=== PATIENT | male | born 1960 | race Caucasian/White ===

== ENCOUNTER 2016-09-05 14:31 | Emergency (ER) | payer OTHER ==
[~2016-09-05] VITALS: Ht 157.5 cm; Wt 67.9 kg
[~2016-09-05 14:31] MED LIST: ACET325T33 PO; ACET500C5 PO; ALBU18HF IH; ALBU18HF INHALATION; ALBU2.5V3 NEB; ALBU8.5H3 INH; ASPI-664 PO; DIAZ-90 PO; GUAI-158 PO; LISI20TA11 PO; LORA10CA PO; NAPR-260 PO; PANT40TA4 PO; PRED20TA PO; RTPRO NEB; SIMV20TA PO; SODI30SP2 NS; UDROBDM PO
[2016-09-05 14:40] VITALS: Ht 157.5 cm; Wt 67.9 kg
[2016-09-05] MEDS ORDERED: ONDANSETRON (ODT) 4 MG TAB ODT STA (15:35)
[2016-09-05] MEDS ORDERED: MECLIZINE 12.5 MG TAB PO STA (15:35)
--- NOTE | 2016-09-05 15:45 | ERD ---
ER Documentation Chief Complaint Date/Time DATE: 09/05/16 TIME: 15:43 Chief Complaint vertigo x 1 week HPI This is a 55-year-old male with a history of gastritis, high cholesterol, asthma presenting to the emergency department complaining of dizziness when he turns his head for the past week. Patient does admit to having nausea, and balance when he walks. He denies significant headache, tinnitus, recent upper respiratory infection, ear infections, and other neuro deficits. Patient states that this has never happened before. He denies taking any medications ROS All systems reviewed and are negative except as per history of present illness. Medications Home Meds Active Scripts Guaifenesin/Dextromethorphan* (Guaifenesin* DM) 1 Each Tablet, 1 TAB PO Q12, # 20 TAB.SA Prov:AISLINN CABEZAS PA-C 03/28/16 Loratadine* (Claritin*) 10 Mg Capsule, 10 MG PO DAILY, #30 CAP Prov:AISLINN CABEZAS PA-C 03/28/16 Sodium Chloride (Saline Nasal [place]) 30 Ml [place], 1 SPR NS BID, #1 SPRAY Prov:AISLINN CABEZAS PA-C 03/28/16 Diazepam* (Valium*) 5 Mg Tablet, 5 MG PO Q8, #5 TAB Prov:TIFFANIE COTA NP 02/04/16 Guaifenesin-Dextromethorphan* (Robitussin* DM) 100MG/10MG/5ML Syrup, 5 ML PO Q6H Y for COUGH for 6 Days, #120 ML 0 Refills Prov:ROBERT HUERTA PA-C 12/24/15 Acetaminophen* (Tylophen*) 500 Mg Capsule, 1 CAP PO Q6H Y for PAIN AND OR ELEVATED TEMP for 5 Days, #20 CAP 0 Refills Prov:ROBERT HUERTA PA-C 12/24/15 Albuterol Sulfate* (Ventolin HFA*) 18 Gm Hfa.aer.ad, 2 PUFF INHALATION Q6H for 30 Days, #1 INHALER 0 Refills Prov:ROBERT HUERTA PA-C 12/24/15 Albuterol Sulfate* (Proair HFA*) 8.5 Gm Hfa.aer.ad, 2 PUFF INH Q4, #1 INHALER Prov:SHERI SR PA-C 09/26/15 Albuterol Sulfate* (Proventil* Neb) 0.083% Neb, 2.5 MG NEB Q4 Y for SHORTNESS OF BREATH, #30 EA Prov:REMBERTOSHERI Osman PA-C 09/26/15 Prednisone* (Prednisone*) 20 Mg Tab, 40 MG PO DAILY for 4 Days, TAB Prov:SHERI SR PA-C 09/26/15 Acetaminophen* (Tylenol*) 325 Mg Tablet, 2 TAB PO Q8 Y for PAIN AND OR ELEVATED TEMP, #20 TAB Prov:MISSY WEBB DO 08/17/15 Naproxen* (Naprosyn*) 500 Mg Tablet, 500 MG PO BID Y for PAIN AND/OR INFLAMMATION, #20 TAB Prov:TRACEY,MISSY DO 08/17/15 Aspirin* (Aspirin* EC) 81 Mg Tablet.dr, 81 MG PO DAILY, #30 TAB Prov:CHIRAG EDWARDS 05/13/15 Pantoprazole* (Pantoprazole*) 40 Mg Tabec, 40 MG PO DAILY@06, #30 Prov:AYALA HARTMAN Y 01/16/15 Albuterol Sulfate* (Ventolin HFA*) 18 Gm Hfa.aer.ad, 2 PUFF IH Q4H Y for WHEEZING AND RESP DISTRESS for 10 Days, EA Prov:PEEWEE CONNELL MD 11/06/14 Reported Medications Simvastatin* (Zocor*) 20 Mg Tablet, 20 MG PO HS, TAB 03/23/15 Albuterol Sulfate* (Albuterol Sulfate* Neb) 0.083%-3 Ml Neb, 1.25 MG NEB Q3H Y for WHEEZING AND SOB, EA 01/12/15 Lisinopril* (Lisinopril*) 20 Mg Tablet, 20 MG PO DAILY, TAB HOLD IF SBP LESS THAN 110 01/12/15 Allergies Allergies: Coded Allergies: No Known Allergy (Unverified , 09/05/16) PMhx/Soc Medical and Surgical Hx: pt denies Medical Hx, pt denies Surgical Hx History of Surgery: No Anesthesia Reaction: No Hx Neurological Disorder: No Hx Respiratory Disorders: No Hx Cardiac Disorders: No (hypercholesterolemia) Hx Psychiatric Problems: No Hx Miscellaneous Medical Probl: No Hx Alcohol Use: No Hx Substance Use: No Hx Tobacco Use: No Smoking Status: Never smoker Physical Exam Vitals Vital Signs Date Time Temp Pulse Resp B/P Pulse Ox O2 Delivery O2 Flow Rate FiO2 09/05/16 14:40 98.1 75 18 111/75 99 Physical Exam GENERAL: well-developed/well-nourished, in no apparent distress, non-toxic appearing HENT: NC/AT, bilateral tympanic membrane is normal with good cone of light, nares patent, oropharynx clear without exudates EYES: Conjunctiva normal, PERRLA, EOMI, no nystagmus noted NECK: Supple, no lymphadenopathy PULM: CTA bilaterally, no rales, rhonchi, or wheezing heard CV: Normal S1S2, RRR, good capillary refill GI: Soft, non-distended, normal bowel sounds, non-tender BACK: No midline tenderness, no masses, No CVAT EXT: No clubbing, cyanosis, or edema NEURO: Alert and orientated to person, place, and time. CN II-IIX intact. Gait and coordination were normal. Hand homemaking rehabilitation consultant strength were equal and within normal limits SKIN: Intact, normal turgor PSYCH: Normal mood and mentation, patient denied SI Results 24 hrs Current Medications Medications (Trade) Dose Ordered Sig/Doe Route PRN Reason Start Time Stop Time Status Last Admin Dose Admin Ondansetron HCl (Zofran Odt) 8 mg ONCE STAT ODT 09/05/16 15:35 09/05/16 15:36 DC 09/05/16 15:41 Meclizine HCl (Antivert) 25 mg ONCE STAT PO 09/05/16 15:35 09/05/16 15:36 DC 09/05/16 15:41 Procedures/MDM MDM: 55-year-old male presents to the ER with vertigo. My clinical suspicion for benign paroxysmal positional vertigo is high due to physical examination. Symptoms were reproduced with movement of head. My other differentials include but not limited to include labyrinthitis, vestibular neuritis, Mnire's disease , acoustic neuroma, otitis media and central causes such as vestibular migraine , brainstem ischemia, and multiple sclerosis. Patient did not have neurological symptoms, headaches, tinnitus or hearing loss. I do not think a CT scan is necessary at this time, as I believe the risks outweigh the benefits since symptoms are most consistent with benign positional vertigo. However, I have given strict precautions to return to the ER if condition is not improving as expected or if condition worsens. In the ED, patient was given Antivert 25mg and Zofran 8mg ODT. DISPOSITION: hemodynamically stable for discharge home. I have discussed the pathology of the condition. Prescriptions Antivert and Zofran have been given. I have discussed to see a primary care physician for follow-up examination and management. Discussed to return to the ER if condition worsens or not improves as expected. Patient expressed that they agreed and understood this plan. Departure Diagnosis: Primary Impression: Vertigo Condition: Stable AISLINN CABEZAS PA-C September 05, 2016 15:45
[2016-09-05] MEDS ORDERED: ONDA8TAB14 PO (15:48)
[2016-09-05] MEDS ORDERED: MECL12.574 PO (15:48)
[2016-09-05 16:35] VITALS: BP 118/67; PULSE 78; RESP 18; TEMP 98.1
== END 2016-09-05 16:36 | disposition home or self-care (01) ==
LOC: FTE 14:31
DX: R42 Dizziness and giddiness (principal); Z79.82 Long term (current) use of aspirin
CPT/HCPCS: Z7502; Z7610; 99283

== ENCOUNTER 2016-11-17 12:21 | Emergency (ER) | payer OTHER ==
[~2016-11-17] VITALS: Ht 162.6 cm; Wt 59.0 kg
[~2016-11-17 12:21] MED LIST changes: +MECL12.574 PO; +ONDA8TAB14 PO
[2016-11-17 12:27] VITALS: Ht 162.6 cm; Wt 59.0 kg
[2016-11-17] MEDS ORDERED: ALBUTEROL 0.083% (NEB) 2.5 MG/3 ML AMP HHN STA (12:35)
[2016-11-17] MEDS ORDERED: predniSONE 20 MG TAB PO ONE (13:00)
[2016-11-17] MEDS ORDERED: IPRATROPIUM (NEB) 0.5 MG/2.5 ML AMP HHN ONE (13:00)
[2016-11-17] MEDS ORDERED: PRED20TA PO (13:10)
[2016-11-17] MEDS ORDERED: ALBU2.5V3 NEB (13:10)
[2016-11-17] MEDS ORDERED: ALBU18HF INHALATION (13:10)
--- NOTE | 2016-11-17 13:21 | ERD ---
ER Documentation Chief Complaint Date/Time DATE: 11/17/16 TIME: 13:19 Chief Complaint ASTHMA USING DAILY TX @ HOME, MACHINE BROKEN UNABLE TO USE LAST 4 DAYS HPI This 56-year-old male presented with an asthma exacerbation this been going for the last 4 days. Said he got progressively worse. He has a history of asthma. He also has a history of hypertension but denies any chest pain. He says this feels like his normal asthma exacerbation. He was not able to treat himself at home because the mask to his nebulizer is currently broken. Denies fevers and chills. ROS All systems reviewed and are negative except as per history of present illness. Medications Home Meds Active Scripts Prednisone* (Prednisone*) 20 Mg Tab, 40 MG PO DAILY, #20 TAB Prov:FALLONHIRA 11/17/16 Albuterol Sulfate* (Ventolin HFA*) 18 Gm Hfa.aer.ad, 2 PUFF INHALATION Q4H, #1 INHALER Prov:FALLONHIRA 11/17/16 Albuterol Sulfate* (Albuterol Sulfate* Neb) 0.083%-3 Ml Neb, 2.5 MG NEB Q4H, # 30 VIAL Prov:FALLONHIRA 11/17/16 Ondansetron (Ondansetron Odt) 8 Mg Tab.rapdis, 8 MG PO Q6H Y for NAUSEA AND/OR VOMITING, #20 TAB Prov:AISLINN CABEZAS PA-C 09/05/16 Meclizine Hcl* (Antivert*) 12.5 Mg Tab, 25 MG PO Q6H Y for DIZZINESS, #30 TAB Prov:AISLINN CABEZAS PA-C 09/05/16 Guaifenesin/Dextromethorphan* (Guaifenesin* DM) 1 Each Tablet, 1 TAB PO Q12, # 20 TAB.SA Prov:AISLINN CABEZAS PA-C 03/28/16 Loratadine* (Claritin*) 10 Mg Capsule, 10 MG PO DAILY, #30 CAP Prov:AISLINN CABEZAS PA-C 03/28/16 Sodium Chloride (Saline Nasal [place]) 30 Ml [place], 1 SPR NS BID, #1 SPRAY Prov:AISLINN CABEZAS PA-C 03/28/16 Diazepam* (Valium*) 5 Mg Tablet, 5 MG PO Q8, #5 TAB Prov:BEATATIFFANIE Devorah MERLOS 02/04/16 Guaifenesin-Dextromethorphan* (Robitussin* DM) 100MG/10MG/5ML Syrup, 5 ML PO Q6H Y for COUGH for 6 Days, #120 ML 0 Refills Prov:ROBERT HUERTA PA-C 12/24/15 Acetaminophen* (Tylophen*) 500 Mg Capsule, 1 CAP PO Q6H Y for PAIN AND OR ELEVATED TEMP for 5 Days, #20 CAP 0 Refills Prov:ROBERT HUERTA PA-C 12/24/15 Albuterol Sulfate* (Ventolin HFA*) 18 Gm Hfa.aer.ad, 2 PUFF INHALATION Q6H for 30 Days, #1 INHALER 0 Refills Prov:ROBERT HUERTA PA-C 12/24/15 Albuterol Sulfate* (Proair HFA*) 8.5 Gm Hfa.aer.ad, 2 PUFF INH Q4, #1 INHALER Prov:SHERI SR PA-C 09/26/15 Albuterol Sulfate* (Proventil* Neb) 0.083% Neb, 2.5 MG NEB Q4 Y for SHORTNESS OF BREATH, #30 EA Prov:SHERI SR PA-C 09/26/15 Prednisone* (Prednisone*) 20 Mg Tab, 40 MG PO DAILY for 4 Days, TAB Prov:SHERI SR PA-C 09/26/15 Acetaminophen* (Tylenol*) 325 Mg Tablet, 2 TAB PO Q8 Y for PAIN AND OR ELEVATED TEMP, #20 TAB Prov:MISSY WEBB DO 08/17/15 Naproxen* (Naprosyn*) 500 Mg Tablet, 500 MG PO BID Y for PAIN AND/OR INFLAMMATION, #20 TAB Prov:MISSY WEBB DO 08/17/15 Aspirin* (Aspirin* EC) 81 Mg Tablet.dr, 81 MG PO DAILY, #30 TAB Prov:CHIRAG EDWARDS 05/13/15 Pantoprazole* (Pantoprazole*) 40 Mg Tabec, 40 MG PO DAILY@06, #30 Prov:AYALA HARTMAN 01/16/15 Albuterol Sulfate* (Ventolin HFA*) 18 Gm Hfa.aer.ad, 2 PUFF IH Q4H Y for WHEEZING AND RESP DISTRESS for 10 Days, EA Prov:PEEWEE CONNELL MD 11/06/14 Reported Medications Simvastatin* (Zocor*) 20 Mg Tablet, 20 MG PO HS, TAB 03/23/15 Albuterol Sulfate* (Albuterol Sulfate* Neb) 0.083%-3 Ml Neb, 1.25 MG NEB Q3H Y for WHEEZING AND SOB, EA 01/12/15 Lisinopril* (Lisinopril*) 20 Mg Tablet, 20 MG PO DAILY, TAB HOLD IF SBP LESS THAN 110 01/12/15 Allergies Allergies: Coded Allergies: No Known Allergy (Unverified , 09/05/16) PMhx/Soc Medical and Surgical Hx: pt denies Medical Hx, pt denies Surgical Hx History of Surgery: No Anesthesia Reaction: No Hx Neurological Disorder: No Hx Respiratory Disorders: No Hx Cardiac Disorders: No (hypercholesterolemia) Hx Psychiatric Problems: No Hx Miscellaneous Medical Probl: No Hx Alcohol Use: No Hx Substance Use: No Hx Tobacco Use: No Smoking Status: Never smoker Physical Exam Vitals Vital Signs Date Time Temp Pulse Resp B/P Pulse Ox O2 Delivery O2 Flow Rate FiO2 11/17/16 12:56 85 19 96 21 11/17/16 12:27 98.1 78 18 143/73 96 Physical Exam Const: [] Mild distress Head: Atraumatic Eyes: Normal Conjunctiva ENT: Normal External Ears, Nose and Mouth. Neck: Full range of motion..~ No meningismus. No JVD Resp: Mild to moderate bilateral expiratory wheezes and prolonged expiratory time Cardio: Regular rate and rhythm, no murmurs Skin: No petechiae or rashes Back: No midline or flank tenderness Ext: No cyanosis, or edema Neur: Awake and alert and oriented 3, no focal deficits Psych: Normal Mood and Affect Results 24 hrs Current Medications Medications (Trade) Dose Ordered Sig/Doe Route PRN Reason Start Time Stop Time Status Last Admin Dose Admin Prednisone (Prednisone) 60 mg ONCE ONCE PO 11/17/16 13:00 11/17/16 13:01 DC 11/17/16 12:45 Albuterol (Proventil 0.083% (Neb)) 10 mg ONCE STAT HHN 11/17/16 12:35 11/17/16 12:36 DC 11/17/16 12:52 Ipratropium Singer (Atrovent 0.02% (Neb)) 1 mg ONCE ONCE N 11/17/16 13:00 11/17/16 13:01 DC 11/17/16 12:52 Procedures/MDM Moderate asthma exacerbation and known asthmatic. Was treated with 10 mg albuterol 1 mg Atrovent nebulizers in the ER. This led to complete resolution of his wheezing and he felt much better. Is also given 60 mg prednisone. I am going to discharge him with the refill for albuterol inhalers for his nebulizer machine as well as a prescription for a new nebulizer machine. Also discharging with a Ventolin inhaler and 40 mg prednisone for 4 days. Return precautions to the ER given and primary care follow-up in 2-3 days per Departure Diagnosis: Primary Impression: Asthma attack Condition: Stable Patient Instructions: Asthma, Acute (Adult) Additional Instructions: Llame al doctor TURNER y ian teresa JAY PARA DENTRO DE 2-3 ROBERTS.Dgale a la secretaria que nosotros le instruimos hacer esta jay.Avise o llame si florentino condicin se empeora antes de la jay. Regresa aqui si peor o no mejor. HIRA LEHMAN DO Nov 17, 2016 13:21
[2016-11-17 14:15] VITALS: BP 118/76; PULSE 71; RESP 18; TEMP 98.1
== END 2016-11-17 14:36 | disposition home or self-care (01) ==
LOC: FTE 12:21
DX: J45.901 Unspecified asthma with (acute) exacerbation (principal); I10 Essential (primary) hypertension; Z79.82 Long term (current) use of aspirin
CPT/HCPCS: 94644; J7512; Z7502; Z7610

== ENCOUNTER 2017-02-06 14:06 | Emergency (ER) | payer OTHER ==
[~2017-02-06] VITALS: Ht 152.4 cm; Wt 57.0 kg
[2017-02-06 14:13] VITALS: Ht 152.4 cm; Wt 57.0 kg
[2017-02-06 16:54] LABS: ADD UMIC NO; UR ASCORBIC ACID NEGATIVE (NEGATIVE); UR BILIRUBIN (Dip) NEGATIVE (NEGATIVE); UR BLOOD (Dip) NEGATIVE (NEGATIVE); UR CLARITY CLEAR (CLEAR); UR COLOR YELLOW (YELLOW); UR GLUCOSE (Dip) NEGATIVE (NEGATIVE); UR KETONES (Dip) NEGATIVE (NEGATIVE); UR LEUKOCYTE ESTERASE (Dip) NEGATIVE Leu/ul (NEGATIVE); UR NITRITE (Dip) NEGATIVE (NEGATIVE); UR SPECIFIC GRAVITY (Dip) 1.023 (1.003-1.030); UR TOTAL PROTEIN (Dip) NEGATIVE (NEGATIVE); UR UROBILINOGEN (Dip) NEGATIVE (NEGATIVE)
[2017-02-06] MEDS ORDERED: TRIA15CR55 TOP (17:07)
--- NOTE | 2017-02-06 17:38 | ERD ---
ER Documentation Chief Complaint Date/Time DATE: 02/06/17 TIME: 17:37 Chief Complaint Burn/redness" on scrotum HPI 56 year old male patient with no significant past medical history presents to the ED complaining of bilateral scrotal redness that started intermittently for 1 week. Reports that he also has a rash to left side of the abdomen that is chronic. Denies any fever, chills, nausea, vomiting, diarrhea, abdominal pain, chest pain, shortness of breath, lip swelling, tongue swelling. denies any scrotal pain or swelling, dysuria, urgency, frequency, hematuria. Denies any scrotal trauma. Reports that he feels like the hotness of the cell phone in his pocket injured his bilateral scrotum. ROS All systems reviewed and are negative except as per history of present illness. Medications Home Meds Active Scripts Triamcinolone Acetonide (Triamcinolone Acetonide) 0.1% - 15 Gm Cream.gm., 1 APPLIC TOP QID, #1 TUB Prov:SHERI SR PA-C 02/06/17 Prednisone* (Prednisone*) 20 Mg Tab, 40 MG PO DAILY, #20 TAB Prov:HIRA LEHMAN DO 11/17/16 Albuterol Sulfate* (Ventolin HFA*) 18 Gm Hfa.aer.ad, 2 PUFF INHALATION Q4H, #1 INHALER Prov:HIRA LEHMAN DO 11/17/16 Albuterol Sulfate* (Albuterol Sulfate* Neb) 0.083%-3 Ml Neb, 2.5 MG NEB Q4H, # 30 VIAL Prov:HIRA LEHMAN DO 11/17/16 Ondansetron (Ondansetron Odt) 8 Mg Tab.rapdis, 8 MG PO Q6H Y for NAUSEA AND/OR VOMITING, #20 TAB Prov:AISLINN CABEZAS PA-C 09/05/16 Meclizine Hcl* (Antivert*) 12.5 Mg Tab, 25 MG PO Q6H Y for DIZZINESS, #30 TAB Prov:AISLINN CABEZAS PA-C 09/05/16 Guaifenesin/Dextromethorphan* (Guaifenesin* DM) 1 Each Tablet, 1 TAB PO Q12, # 20 TAB.SA Prov:AISLINN CABEZASC 03/28/16 Loratadine* (Claritin*) 10 Mg Capsule, 10 MG PO DAILY, #30 CAP Prov:AISLINN CABEZAS PA-C 03/28/16 Sodium Chloride (Saline Nasal [place]) 30 Ml [place], 1 SPR NS BID, #1 SPRAY Prov:AISLINN CABEZAS PA-C 03/28/16 Diazepam* (Valium*) 5 Mg Tablet, 5 MG PO Q8, #5 TAB Prov:TIFFANIE COTA NP 02/04/16 Guaifenesin-Dextromethorphan* (Robitussin* DM) 100MG/10MG/5ML Syrup, 5 ML PO Q6H Y for COUGH for 6 Days, #120 ML 0 Refills Prov:ROBERT HUERTA PA-C 12/24/15 Acetaminophen* (Tylophen*) 500 Mg Capsule, 1 CAP PO Q6H Y for PAIN AND OR ELEVATED TEMP for 5 Days, #20 CAP 0 Refills Prov:ROBERT HUERTA PA-C 12/24/15 Albuterol Sulfate* (Ventolin HFA*) 18 Gm Hfa.aer.ad, 2 PUFF INHALATION Q6H for 30 Days, #1 INHALER 0 Refills Prov:ROBERT HUERTA PA-C 12/24/15 Albuterol Sulfate* (Proair HFA*) 8.5 Gm Hfa.aer.ad, 2 PUFF INH Q4, #1 INHALER Prov:SHERI SR PA-C 09/26/15 Albuterol Sulfate* (Proventil* Neb) 0.083% Neb, 2.5 MG NEB Q4 Y for SHORTNESS OF BREATH, #30 EA Prov:SHERI SR PA-C 09/26/15 Prednisone* (Prednisone*) 20 Mg Tab, 40 MG PO DAILY for 4 Days, TAB Prov:SHERI SR PA-C 09/26/15 Acetaminophen* (Tylenol*) 325 Mg Tablet, 2 TAB PO Q8 Y for PAIN AND OR ELEVATED TEMP, #20 TAB Prov:MISSY WEBB DO 08/17/15 Naproxen* (Naprosyn*) 500 Mg Tablet, 500 MG PO BID Y for PAIN AND/OR INFLAMMATION, #20 TAB Prov:MISSY WEBB DO 08/17/15 Aspirin* (Aspirin* EC) 81 Mg Tablet.dr, 81 MG PO DAILY, #30 TAB Prov:CHIRAG EDWARDS 05/13/15 Pantoprazole* (Pantoprazole*) 40 Mg Tabec, 40 MG PO DAILY@06, #30 Prov:AYALA HARTMAN 01/16/15 Albuterol Sulfate* (Ventolin HFA*) 18 Gm Hfa.aer.ad, 2 PUFF IH Q4H Y for WHEEZING AND RESP DISTRESS for 10 Days, EA Prov:PEEWEE CONNELL MD 11/06/14 Reported Medications Simvastatin* (Zocor*) 20 Mg Tablet, 20 MG PO HS, TAB 03/23/15 Albuterol Sulfate* (Albuterol Sulfate* Neb) 0.083%-3 Ml Neb, 1.25 MG NEB Q3H Y for WHEEZING AND SOB, EA 01/12/15 Lisinopril* (Lisinopril*) 20 Mg Tablet, 20 MG PO DAILY, TAB HOLD IF SBP LESS THAN 110 01/12/15 Allergies Allergies: Coded Allergies: No Known Allergy (Unverified , 02/06/17) PMhx/Soc Medical and Surgical Hx: pt denies Surgical Hx History of Surgery: No Anesthesia Reaction: No Hx Neurological Disorder: No Hx Respiratory Disorders: No Hx Cardiac Disorders: No (hypercholesterolemia) Hx Psychiatric Problems: No Hx Miscellaneous Medical Probl: No Hx Alcohol Use: No Hx Substance Use: No Hx Tobacco Use: No Smoking Status: Never smoker Physical Exam Vitals Vital Signs Date Time Temp Pulse Resp B/P Pulse Ox O2 Delivery O2 Flow Rate FiO2 02/06/17 14:13 98.2 70 18 128/89 96 Physical Exam Const: Bhr-hpt-[id number], well-nourished. In no acute distress. Head: Atraumatic, normocephalic Eyes: Normal Conjunctiva without injection. No purulent discharge. ENT: Normal external ear, nose. Moist oropharynx without tonsillar exudates. Non -erythematous pharynx. Uvula midline. No drooling. No trismus. Neck: No cervical midline tenderness. Full range of motion. No meningismus. No cervical lymphadenopathy. No JVD. Resp: Clear to auscultation bilaterally. No wheezing, rhonchi, rales, or crackles. No accessory muscle use. No retractions. Cardio: Regular rate and rhythm. No murmurs, rubs or gallops. Abd: Soft, nontender, non distended. Normal bowel sounds. No palpable masses. No rebound tenderness. No guarding. Negative McBurney's point. Negative psoas sign. Negative obturator sign. Chronic dry old herpetic lesions noted. No fluctuance or erythema or vesicles noted. : Circumcised penis. No penile discharge. Erythema to bilateral scrotum with no edema or tenderness to palpation. Skin: No petechiae or rashes Back: No midline tenderness. No CVA tenderness. Ext: No cyanosis, or edema. Neur: Awake and alert. Normal gait. Normal coordination. Psych: Normal Mood and Affect Results 24 hrs Laboratory Tests Test 02/06/17 16:22 Urine Color YELLOW Urine Clarity CLEAR Urine pH 7.0 Urine Specific [place] 1.023 Urine Ketones NEGATIVEmg/dL Urine Nitrite NEGATIVEmg/dL Urine Bilirubin NEGATIVEmg/dL Urine Urobilinogen NEGATIVEmg/dL Urine Leukocyte Esterase NEGATIVELeu/ul Urine Hemoglobin NEGATIVEmg/dL Urine Glucose NEGATIVEmg/dL Urine Total Protein NEGATIVEmg/dl Procedures/MDM 56-year-old male patient with a past medical history presents to the ED complaining of scrotal redness that started intermittently for 1 week. Patient is afebrile and nontoxic-appearing. Patient has normal vital signs. This patient was also examined by Dr. De La Torre who stated that patient scrotal redness was likely secondary to dermatitis. Patient was also noted to have redness in his axillary region. Differentials include eczema versus contact dermatitis. Low suspicion for testicular torsion, Carla's gangrene, appendicitis, urinary tract infection, pyelonephritis. Urinalysis was negative for leukocyte esterase, nitrite or hematuria. Low suspicion for anaphylaxis, scabies, SJS/TEN , TSS, Lyme's Disease, syphilis, RMSF, shingles, disseminated gonorrhea chlamydia, DIC, TTP, ITP, erythema multiforme, sepsis, cellulitis, necrotizing fascitis, gangrene, meningococcemia, allergic contact dermatitis, urticaria, eczema, tinea infection, or other emergent conditions. Discharge medications: Triamcinolone cream Follow up with primary care physician in 1-2 days. Instructed patient to return to the ED sooner for any worsening symptoms. Patient's questions were answered. Patient understood and agreed with discharge plan. Patient discharged stable. Departure Diagnosis: Primary Impression: Dermatitis Condition: Stable Patient Instructions: Dermatitis, Non-Specific [facility]errals: [facility] Jeff se love hecho un examen mdico de control que le indica que no est en teresa condicin que requiera tratamiento urgente en el Departamento de Emergencia. Un estudio ms profundo y el tratamiento de florentino condicin pueden esperar sin ningn riesgo hasta que usted sea atendida/o en el consultorio de florentino mdico o teresa cl daniel. Es responsabilidad suya arreglar teresa jay para el seguimiento del edmundo. MANEJO DE CONDICIONES NO URGENTES EN EL FUTURO 1) Si usted tiene un mdico de atencin primaria: Usted debera llamar a florentino mdico de atencin primaria antes de venir al departamento de emergencia. Despus de las horas de consultorio, florentino doctor o florentino asociado/a est disponible por telfono. El mdico o enfermero de nannette en el servicio telefnico puede asesorarle por lanny medio para atender el problema, o edmundo contrario se puede programar teresa jay. 2) Si usted no tiene un mdico de atencin primaria: Llame al mdico o clnica de referencia que aparece abajo tracy las horas de consultorio para hacer teresa jay para que le vean. CLINICAS: [facility] [phone] [facility] [phone] [facility] [phone] [address] [facility] [facility] [phone] [address] [facility]. [facility] [phone] [facility]. [phone] [address] [facility]. [facility] () Usted se love hecho un examen mdico de control que le indica que no est en teresa condicin que requiera tratamiento urgente en el Departamento de Emergencia. Un estudio ms profundo y el tratamiento de florentino condicin pueden esperar sin ningn riesgo hasta que usted sea atendida/o en el consultorio de florentino mdico o teresa cl daniel. Es responsabilidad suya arreglar teresa jay para el seguimiento del edmundo. MANEJO DE CONDICIONES NO URGENTES EN EL FUTURO 1) Si usted tiene un mdico de atencin primaria: Usted debera llamar a florentino mdico de atencin primaria antes de venir al departamento de emergencia. Despus de las horas de consultorio, florentino doctor o florentino asociado/a est disponible por telfono. El mdico o enfermero de nannette en el servicio telefnico puede asesorarle por lanny medio para atender el problema, o edmundo contrario se puede programar teresa jay. 2) Si usted no tiene un mdico de atencin primaria: Llame al mdico o condado institucions de referencia que aparece abajo tracy las horas de consultorio para hacer treesa jay para que le vean. SI USTED NO PUEDE PAGAR PARA RAFAEL UN MEDICO puede ir a: [facility] [address] [place] [address] [facility] [address] [place] [address] [facility] [address] [place] [address] [facility] [facility] [address] [place] [address] [facility]RGENT C[facility]/SPECIALTIES Additional Instructions: Llame al doctor MAANA y ian teresa JAY PARA DENTRO DE 2-3 ROBERTS.Dgale a la secretaria que nosotros le instruimos hacer esta jay.Avise o llame si florentino condicin se empeora antes de la jay. Regresa aqui si peor o no mejor. SHERI SR PA-C Feb 06, 2017 17:38
== END 2017-02-06 17:20 | disposition home or self-care (01) ==
LOC: FTE 14:06
DX: L30.9 Dermatitis, unspecified (principal); Z79.82 Long term (current) use of aspirin
CPT/HCPCS: 81003; Z7502; 99283

== ENCOUNTER 2017-02-27 09:54 | Day surgery (SDC) | payer OTHER ==
[~2017-02-27] VITALS: Ht 157.5 cm; Wt 55.9 kg
[~2017-02-27 09:54] MED LIST changes: +TRIA15CR55 TOP
[2017-02-27] MEDS ORDERED: RANI150T9 PO (10:39)
[2017-02-27] MEDS ORDERED: MONT5TAB12 PO (10:39)
[2017-02-27 10:42] VITALS: Ht 157.5 cm; Wt 55.9 kg
[2017-02-27 11:00] VITALS: BP 120/80; PULSE 65; RESP 18
--- NOTE | 2017-02-27 12:01 | OPPN ---
Date/Time of Note Date/Time of Note DATE: 02/27/17 TIME: 12:00 Operative Report Preoperative Diagnosis Screening Postoperative Diagnosis Rectal polyp was removed Internal hemorrhoids Operation/Procedure Performed Colonoscopy and biopsy Surgeon see signature line assistant front office manager None Anesthesia: moderate sedation Estimated blood loss: none Transfusion Required none Specimen Rectal polyp Grafts/Implants none Complications none VICKI RM MD Feb 27, 2017 12:01
--- NOTE | 2017-02-27 12:01 | OPPN ---
Date/Time of Note Date/Time of Note DATE: 02/27/17 TIME: 12:00 Operative Report Preoperative Diagnosis Screening Postoperative Diagnosis Rectal polyp was removed Internal hemorrhoids Operation/Procedure Performed Colonoscopy and biopsy Surgeon see signature line patient services assistant None Anesthesia: moderate sedation Estimated blood loss: none Transfusion Required none Specimen Rectal polyp Grafts/Implants none Complications none VICKI RM MD Feb 27, 2017 12:01
--- NOTE | 2017-02-27 12:01 | OPPN ---
Date/Time of Note Date/Time of Note DATE: 02/27/17 TIME: 12:00 Operative Report Preoperative Diagnosis Screening Postoperative Diagnosis Rectal polyp was removed Internal hemorrhoids Operation/Procedure Performed Colonoscopy and biopsy Surgeon see signature line press operator assistant None Anesthesia: moderate sedation Estimated blood loss: none Transfusion Required none Specimen Rectal polyp Grafts/Implants none Complications none VICKI RM MD Feb 27, 2017 12:01
[2017-02-27] MEDS ORDERED: FENTAnyl 50 MCG/ML VIAL ONE (12:12)
[2017-02-27] MEDS ORDERED: MIDAZOLAM 1 MG/ML 2 ML INJ ONE ×3 (12:12→12:13)
--- NOTE | 2017-02-28 05:43 | GILP ---
DATE OF PROCEDURE: NAME OF PROCEDURES: Colonoscopy and biopsy. SURGEON: Vicki Reyna MD. PREOPERATIVE DIAGNOSIS: Screening colonoscopy. POSTOPERATIVE DIAGNOSES 1. Colonoscopy all the way to the cecum. 2. Small rectal polyp was removed using the biopsy forceps. 3. Internal hemorrhoids. INDICATION FOR THE PROCEDURE: Mr. Jonnie Ma is a 56-year-old male patient who was schedule d for screening colonoscopy. The procedure and possible complications were well explained to the patient, he understood and conse nted to the procedure. DESCRIPTION OF PROCEDURE: Under the influence of fentanyl and Versed, the colonoscope was carefully introduced in the rectum and under direct vision, it was advanced all the way to the cecum. FINDINGS: The patient had a small rectal polyp and it was removed using the biopsy forceps. He had internal hemorrhoids. He tolerated the procedure very well and there was no complication from the procedure. At the end o f the procedure, he was awake with stable vital signs and he was discharged home to the care of his family. IMPRESSION: Please see postoperative diagnosis. PLAN: 1. Await histopathology report. 2. Next screening colonoscopy in 5 years. Dictated By: VICKI COOK/ABDULAZIZ Conf#: [id number] DID#: [id number]
== END 2017-02-27 12:19 | disposition home or self-care (01) ==
LOC: GIL 09:54
PROVIDERS: ATTEND Internal Medicine Gastroenterology
DX: Z12.11 Encounter for screening for malignant neoplasm of colon (principal); D12.8 Benign neoplasm of rectum; K64.8 Other hemorrhoids; E78.5 Hyperlipidemia, unspecified
CPT/HCPCS: 45380; 88305; J2250; J3010; Z7610

== ENCOUNTER 2017-05-22 08:50 | Emergency (ER) | END 2017-05-22 12:21 | disposition home or self-care (01) ==

== ENCOUNTER 2018-01-22 19:03 | Emergency (ER) | END 2018-01-22 21:50 | disposition home or self-care (01) ==

== ENCOUNTER 2018-03-24 14:52 | Emergency (ER) | END 2018-03-24 18:20 | disposition home or self-care (01) ==